=== PATIENT | male | born 1995 | race African-American/Black ===

== ENCOUNTER 2018-08-24 14:15 | Emergency (ER) | payer SELFPAY ==
[~2018-08-24] VITALS: Ht 175.3 cm; Wt 90.9 kg
[2018-08-24 14:32] VITALS: BP 139/77; Ht 175.3 cm; Wt 90.9 kg
[2018-08-24] MEDS ORDERED: VIBRAMYCIN 100100 MG PO (16:45)
[2018-08-24] MEDS ORDERED: PHENERGAN DM SYR5 ML PO (16:46)
== END 2018-08-24 17:36 | disposition home or self-care (01) ==
LOC: D.ER 14:15
DX: J06.9 Acute upper respiratory infection, unspecified (principal); R09.89 Other specified symptoms and signs involving the circulatory and respiratory systems; F17.200 Nicotine dependence, unspecified, uncomplicated